=== PATIENT | male | born 1985 | race Caucasian/White ===

== ENCOUNTER 2020-06-28 16:27 | Emergency (ER) | payer SELFPAY ==
[2020-06-28] MEDS ORDERED: Sodium Chloride 0.9% 1,000 ML IV ONE ×2 (17:01→17:12)
--- NOTE | 2020-06-28 17:01 | EDM.PDOC ---
ED HPI GENERAL MEDICAL PROBLEM - General Chief Complaint: Gastrointestinal Problem Stated Complaint: ABDOMINAL PAIN Time Seen by Provider: 06/28/20 16:33 Source of Information: Reports: Patient History Limitations: Reports: No Limitations - History of Present Illness INITIAL COMMENTS - FREE TEXT/NARRATIVE: HISTORY AND PHYSICAL: History of present illness: Patient is a 35-year-old male presented to the ED via EMS with complaints of vomiting, nausea, abdominal pain that started this morning. Patient states that he woke up this morning and vomited. He states that he got up and vomited multiple times since and began to feel dizzy and experienced pain in his right lower quadrant. He states he feels like the room is spinning when he moves quickly and upon walking to the ambulance he felt like his gait was unstable. Patient states that after that he sat down on his couch and every time he would try to stand up he would get dizzy and vomit. Patient states that there was a scant amount of blood in his vomitus but he states that he has a significant history of GERD and has been told that this is to be expected with the damage his esophagus has taken; he denies any coffee-ground or bilious emesis. Patient also complains of a frontal headache and some intermittent testicle pain. He states that his symptoms are relieved by sitting still. He states that once he was retrieved by EMS and was given fluids, he began to feel much better in regards of his abdominal pain, dizziness, nausea, and headache. He denies any other effective palliative or provocative measures and denies taking anything for his symptoms today. Patient denies fever, chills, chest pain, shortness of breath, or cough. Denies headache, neck stiff ness, change in vision, syncope, or near syncope. Denies diarrhea, constipation, or dysuria. Has not noted any blood in urine or stool. Patient reports that he has not eaten or drank almost anything in the past 2 days most likely due to depression that he is experiencing. Review of systems: As per history of present illness and below otherwise all systems reviewed and negative. Past medical history: As per history of present illness and as reviewed below otherwise noncontributory. Surgical history: As per history of present illness and as reviewed below otherwise noncontributory. Social history: See social history for further information Family history: As per history of present illness and as reviewed below otherwise noncontributory. Physical exam: General: Patient is alert, oriented, and in no acute distress. Patient laying comfortably on exam table. Vitals stable and reviewed by me. HEENT: Mucous membranes are dry and tacky. Atraumatic, normocephalic, pupils equal and reactive bilaterally, negative for conjunctival pallor or scleral icterus, TMs normal bilaterally, throat clear, neck supple, nontender, trachea midline. No drooling or trismus noted. No meningeal signs. No hot potato voice noted. Lungs: Clear to auscultation, breath sounds equal bilaterally, chest nontender. Heart: S1S2, regular rate and rhythm without overt murmur Abdomen: Soft, nondistended, nontender. Negative for masses or hepatosplenom egaly. Negative for costovertebral tenderness. Negative for rebound tenderness. Negative Rovsing sign. Negative heel tap. Negative obturator sign. Pelvis: Stable nontender. Genitourinary: Testicular exam reveals no hernia. Rectal: Deferred. Skin: Intact, warm, dry. No lesions or rashes noted. Extremities: Atraumatic, negative for cords or calf pain. Neurovascular unremarkable. Neuro: Awake, alert, oriented. Cranial nerves II through XII unremarkable. Cerebellum unremarkable. Motor and sensory unremarkable throughout. Exam nonfocal. Notes: On arrival to the ED, patient is well-appearing and vitally stable. He does get dizzy with ambulation. Will perform routine lab work including cardiac evaluation. Patient declines head CT. All risks vs benefits discussed with patient and expresses understanding. Diagnostics: EKG, CBC, CMP, UA, CXR, Trop, Lipase Therapeutics: NS, Zofran Prescription: Patient eloped the ED prior to discharge Impression: Vomiting Dizziness Abdominal pain Eloped the ED Plan: Eloped the ED prior to discharge Definitive disposition and diagnosis as appropriate pending reevaluation and review of above. abdominal Pain Score (Numeric/FACES): 5 - Related Data Allergies Allergy/AdvReac Type Severity Reaction Status Date / Time No Known Allergies Allergy Verified 06/28/20 16:30 Home Meds: Home Meds . [No Known Home Meds] 06/28/20 [History] Past Medical History - Past Health History Medical/Surgical History: Denies Medical/Surgical History - Past Surgical History Other Musculoskeletal Surgeries/Procedures:: right hand surgery Social & Family History - Tobacco Use Tobacco Use Status *Q: Never Tobacco User - Recreational Drug Use Recreational Drug Use: No ED ROS GENERAL - Review of Systems Review Of Systems: Comprehensive ROS is negative, except as noted in HPI. ED EXAM, GENERAL - Physical Exam Exam: See Below (see dictation) Course - Vital Signs Last Recorded V/S: Last Vital Signs Temp 97.2 F 06/28/20 16:28 Pulse 68 06/28/20 17:09 Resp 16 06/28/20 16:28 BP 148/73 H 06/28/20 17:09 Pulse Ox 99 06/28/20 17:09 - Orders/Labs/Meds Labs: Laboratory Tests 06/28/20 06/28/20 06/28/20 Range/Units 16:43 16:45 16:48 WBC 9.09 (4.0-11.0) K/uL RBC 5.54 (4.50-5.90) M/uL Hgb 13.8 (13.0-17.0) g/dL Hct 42.2 (38.0-50.0) % MCV 76.2 L (80.0-98.0) fL MCH 24.9 L (27.0-32.0) pg MCHC 32.7 (31.0-37.0) g/dL RDW Std Deviation 40.1 (28.0-62.0) fl RDW Coeff of Nico 14 (11.0-15.0) % Plt Count 234 (150-400) K/uL MPV 9.80 (7.40-12.00) fL Neut % (Auto) 88.6 H (48.0-80.0) % Lymph % (Auto) 7.2 L (16.0-40.0) % [place] % (Auto) 3.9 (0.0-15.0) % Eos % (Auto) 0.1 (0.0-7.0) % Baso % (Auto) 0.2 (0.0-1.5) % Neut # (Auto) 8.1 H (1.4-5.7) K/uL Lymph # (Auto) 0.7 (0.6-2.4) K/uL [place] # (Auto) 0.4 (0.0-0.8) K/uL Eos # (Auto) 0.0 (0.0-0.7) K/uL Baso # (Auto) 0.0 (0.0-0.1) K/uL Nucleated RBC % 0.0 /100WBC Nucleated RBCs # 0 K/uL Sodium 141 (136-148) mmol/L Potassium 4.2 (3.5-5.1) mmol/L Chloride 106 (98-107) mmol/L Carbon Dioxide 23.6 (21.0-32.0) mmol/L BUN 12 (7.0-18.0) mg/dL Creatinine 1.1 (0.8-1.3) mg/dL Est Cr Clr Drug Dosing 98.62 mL/min Estimated GFR (MDRD) > 60.0 ml/min Glucose 93 (74-106) mg/dL Calcium 8.9 (8.5-10.1) mg/dL Total Bilirubin 0.4 (0.2-1.0) mg/dL AST 20 (15-37) IU/L ALT 25 (14-63) IU/L Alkaline Phosphatase 55 (46-116) U/L Troponin I < 0.050 (0.000-0.056) ng/mL Total Protein 7.6 (6.4-8.2) g/dL Albumin 3.9 (3.4-5.0) g/dL Globulin 3.7 (2.6-4.0) g/dL Albumin/Globulin Ratio 1.1 (0.9-1.6) Lipase 150 (73-393) U/L Urine Color Urine Appearance Urine pH (5.0-8.0) Ur Specific [place] (1.001-1.035) Urine Protein (NEGATIVE) mg/dL Urine Glucose (UA) (NEGATIVE) mg/dL Urine Ketones (NEGATIVE) mg/dL Urine Occult Blood (NEGATIVE) Urine Nitrite (NEGATIVE) Urine Bilirubin (NEGATIVE) Urine Urobilinogen (<2.0) EU/dL Ur Leukocyte Esterase (NEGATIVE) Urine RBC (0-2/HPF) Urine WBC (0-5/HPF) Ur Epithelial Cells (NONE-FEW) Urine Bacteria (NEGATIVE) 06/28/20 Range/Units 18:12 WBC (4.0-11.0) K/uL RBC (4.50-5.90) M/uL Hgb (13.0-17.0) g/dL Hct (38.0-50.0) % MCV (80.0-98.0) fL MCH (27.0-32.0) pg MCHC (31.0-37.0) g/dL RDW Std Deviation (28.0-62.0) fl RDW Coeff of Nico (11.0-15.0) % Plt Count (150-400) K/uL MPV (7.40-12.00) fL Neut % (Auto) (48.0-80.0) % Lymph % (Auto) (16.0-40.0) % [place] % (Auto) (0.0-15.0) % Eos % (Auto) (0.0-7.0) % Baso % (Auto) (0.0-1.5) % Neut # (Auto) (1.4-5.7) K/uL Lymph # (Auto) (0.6-2.4) K/uL [place] # (Auto) (0.0-0.8) K/uL Eos # (Auto) (0.0-0.7) K/uL Baso # (Auto) (0.0-0.1) K/uL Nucleated RBC % /100WBC Nucleated RBCs # K/uL Sodium (136-148) mmol/L Potassium (3.5-5.1) mmol/L Chloride (98-107) mmol/L Carbon Dioxide (21.0-32.0) mmol/L BUN (7.0-18.0) mg/dL Creatinine (0.8-1.3) mg/dL Est Cr Clr Drug Dosing mL/min Estimated GFR (MDRD) ml/min Glucose (74-106) mg/dL Calcium (8.5-10.1) mg/dL Total Bilirubin (0.2-1.0) mg/dL AST (15-37) IU/L ALT (14-63) IU/L Alkaline Phosphatase (46-116) U/L Troponin I (0.000-0.056) ng/mL Total Protein (6.4-8.2) g/dL Albumin (3.4-5.0) g/dL Globulin (2.6-4.0) g/dL Albumin/Globulin Ratio (0.9-1.6) Lipase (73-393) U/L Urine Color YELLOW Urine Appearance CLEAR Urine pH 8.0 (5.0-8.0) Ur Specific [place] 1.025 (1.001-1.035) Urine Protein TRACE H (NEGATIVE) mg/dL Urine Glucose (UA) NEGATIVE (NEGATIVE) mg/dL Urine Ketones TRACE H (NEGATIVE) mg/dL Urine Occult Blood NEGATIVE (NEGATIVE) Urine Nitrite NEGATIVE (NEGATIVE) Urine Bilirubin NEGATIVE (NEGATIVE) Urine Urobilinogen 1.0 (<2.0) EU/dL Ur Leukocyte Esterase NEGATIVE (NEGATIVE) Urine RBC 0-1 (0-2/HPF) Urine WBC 0-1 (0-5/HPF) Ur Epithelial Cells RARE (NONE-FEW) Urine Bacteria FEW (NEGATIVE) Meds: Medications Discontinued Medications Generic Name Dose Route Start Last Admin Trade Name Stephen PRN Reason Stop Dose Admin Sodium Chloride 1,000 mls @ 999 mls/hr 06/28/20 17:01 06/28/20 17:39 Normal Saline IV 06/28/20 18:01 999 mls/hr STAT ONE Administration Sodium Chloride 1,000 mls @ 999 mls/hr 06/28/20 17:12 06/28/20 17:39 Normal Saline IV 06/28/20 18:12 999 mls/hr STAT ONE Administration Ondansetron HCl 4 mg 06/28/20 17:12 06/28/20 17:39 Ondansetron 4 Mg/2 Ml Sdv IVPUSH 06/28/20 17:13 4 mg ONETIME ONE Administration Departure - Departure Time of Disposition: 22:44 Disposition: Eloped 07 Clinical Impression: Dizziness, Abdominal pain, Eloped from emergency department Vomiting Qualifiers: Vomiting type: unspecified Vomiting Intractability: non-intractable Nausea presence: with nausea Qualified Code(s): R11.2 - Nausea with vomiting, unspecified - Discharge Information Forms: ED Department Discharge Additional Instructions: Patient eloped the ED prior to discharge Sepsis Event Note (ED) - Evaluation Sepsis Screening Result: No Definite Risk - Focused Exam Vital Signs: Vital Signs Temp Pulse Resp BP Pulse Ox 06/28/20 17:09 68 148/73 H 99 06/28/20 16:43 76 139/70 100 06/28/20 16:28 97.2 F 74 16 149/77 H 99
[2020-06-28] MEDS ORDERED: Ondansetron 4 MG/2 ML SDV IVPUSH ONE (17:12)
[2020-06-28 17:31] LABS: BLOOD UREA NITROGEN,BUN 12 mg/dL (7.0-18.0); CARBON DIOXIDE,CO2 23.6 mmol/L (21.0-32.0); CHLORIDE,CL 106 mmol/L (98-107); GLUCOSE RANDOM 93 mg/dL (74-106); LIPASE 150 U/L (73-393); POTASSIUM,K 4.2 mmol/L (3.5-5.1); SODIUM,NA 141 mmol/L (136-148)
--- NOTE | 2020-06-28 18:17 | CR ---
INDICATION: Dizziness. TECHNIQUE: AP upright portable chest x-ray. FINDINGS: Clear lungs. Normal heart size and pulmonary vascularity. Normal included skeleton. IMPRESSION: Negative portable chest. Dictated by Amador Ortiz MD @ Jun 28 2020 6:16PM Signed by Dr. Amador Ortiz @ Jun 28 2020 6:16PM
== END 2020-06-28 18:15 | disposition left against medical advice (07) ==
LOC: MW.ED 16:27
DX: R11.2 Nausea with vomiting, unspecified (principal); R10.31 Right lower quadrant pain; R42 Dizziness and giddiness
CPT/HCPCS: 36415; 71045; 80053; 81001; 83690; 84484; 85025; 93005; 96374; 99284; J2405; J7030; 93010; 99283

== ENCOUNTER 2021-11-26 10:04 | Emergency (ER) | payer SELFPAY ==
[2021-11-26] MEDS ORDERED: Ampicillin/Sulbactam Na 3 GM in Sodium Chloride 0.9% 100 ML IV ONE ×2 (12:02→12:30)
[2021-11-26 13:10] LABS: CARBON DIOXIDE,CO2 26.8 mmol/L (21.0-32.0)
[2021-11-26] MEDS ORDERED: Ketorolac 30 MG/ML SDV IVPUSH ONE (13:14)
[2021-11-26] MEDS ORDERED: Iopamidol 755 MG/ML 500 ML Multipack Bottle IVPUSH STA (13:40)
[2021-11-26] MEDS ORDERED: Benzocaine 20% Topical Spray UD MUCMEM ONE ×2 (14:27→14:55)
[2021-11-26] MEDS: fentaNYL 100 MCG/2 ML SDV IVPUSH PRN ×2 (14:45→15:10)
== END 2021-11-26 16:02 | disposition home or self-care (01) ==
LOC: MW.ED 10:04
DX: J36 Peritonsillar abscess (principal); Z79.899 Other long term (current) drug therapy
CPT/HCPCS: 36415; 42700; 70491; 73130; 80053; 85025; 87651; 96365; 96375; 99284; A9270; J0295; J1885; J3010; Q9967

== ENCOUNTER 2022-06-08 02:15 | Emergency (ER) | payer SELFPAY | END 2022-06-08 02:41 | LOC: MW.ED 02:15 | DX: Z02.89 Encounter for other administrative examinations (principal) | CPT/HCPCS: 99283 ==

== ENCOUNTER 2022-07-13 14:55 | Emergency (ER) | payer SELFPAY ==
[2022-07-13] MEDS ORDERED: Ibuprofen 400 MG Tab PO ONE (15:26)
[2022-07-13] MEDS ORDERED: Acetaminophen 325 MG Tab PO ONE (15:26)
[2022-07-13] MEDS ORDERED: Lidocaine 5% 700 MG Patch TRDERM ONE (15:27)
== END 2022-07-13 17:43 | disposition home or self-care (01) ==
LOC: MW.ED 14:55
DX: M25.59 Pain in other specified joint (principal)
CPT/HCPCS: 71046; 73000; 99284; A9270; 99283